=== PATIENT | female | born 1970 | race Caucasian/White ===

== ENCOUNTER 2020-10-28 22:15 | Emergency (ER) | payer OTHER ==
[~2020-10-28 22:15] MED LIST: ALIVE WOMEN'S1 EAC1 PO; ALL DAY ALLERGY10 M3 PO; BAYER CHEWABLE81 MG PO; BELVIQ XR20 MG PO; DIAZEPAM 5MG TAB5 MG PO; LIPITOR40 MG PO; PAXIL10 MG PO; PROAIR HFA8.5 GM INH; PROGESTERONE200 MG PO; SINGULAIR10 MG PO; TOLTERODINE TART4 MG PO; TOPROL XL 25MG25 MG PO; ZESTRIL2.5 MG PO
[2020-10-28 23:15] LABS: BASOPHIL 0.3 % (0-2); EOSINOPHIL 0.1 % (0-5); HCT 45.2 % (37.0-47.0); HGB 14.6 g/dl (12.5-16.0); LYMPHOCYTE 19.1 % (15-48); MCH 31.1 pg (25.0-31.0); MCHC 32.3 g/dL (32.0-36.0); MCV 96.4 fL (78.0-100.0); MONOCYTE 4.8 % (0-12); NRBC 0; PLT 276 K/uL (150-400); RBC 4.69 M/uL (4.20-5.40); RDW 12.7 % (11.5-14.0); WBC 13.6 K/uL (4.0-10.5)
[2020-10-28 23:44] LABS: PRO-BNP 33 pg/mL (<125)
[2020-10-28 23:45] LABS: ALBUMIN 3.4 g/dL (3.4-5.0); BILIRUBIN - TOTAL 0.4 mg/dL (0.2-1.0); BUN/CREAT RATIO (CALC) 12.9 RATIO; C-REACTIVE PROTEIN 3.8 mg/dL (<=0.90); CREATININE 0.93 mg/dL (0.51-0.95); GLOBULIN (CALCULATION) 3.9 g/dL; POTASSIUM 3.7 mmol/L (3.5-5.1); TOTAL PROTEIN 7.3 g/dL (6.4-8.2)
[2020-10-29 01:21] LABS: INR 0.98 (0.9-1.2); PROTHROMBIN TIME 12.3 SECONDS (11.4-13.6); PTT 25.1 SECONDS (22.2-34.7)
== END 2020-10-29 03:25 | disposition other institution (70) ==
LOC: FER 22:15
PROVIDERS: Emergency Medicine Emergency Medical Services
DX: I82.412 Acute embolism and thrombosis of left femoral vein (principal); I82.432 Acute embolism and thrombosis of left popliteal vein; I82.4Z2 Acute embolism and thrombosis of unspecified deep veins of left distal lower extremity; R10.84 Generalized abdominal pain; E04.1 Nontoxic single thyroid nodule; J44.9 Chronic obstructive pulmonary disease, unspecified; I10 Essential (primary) hypertension; E78.5 Hyperlipidemia, unspecified; Z88.5 Allergy status to narcotic agent; Z79.82 Long term (current) use of aspirin; Z79.899 Other long term (current) drug therapy
CPT/HCPCS: 36415; 36600; 71275; 80053; 82728; 82803; 83615; 83880; 84484; 85025; 85379; 85610; 85730; 86140; 93005; 93971; 94640; 94664; J1644; J2060; J2930; J7030; Q9967

== ENCOUNTER 2020-12-18 23:30 | Emergency (ER) | payer OTHER ==
[2020-12-19 01:42] LABS: BASOPHIL 0.5 % (0-2); EOSINOPHIL 0.6 % (0-5); HCT 38.6 % (37.0-47.0); HGB 12.7 g/dl (12.5-16.0); LYMPHOCYTE 23.7 % (15-48); MCH 31.4 pg (25.0-31.0); MCHC 32.9 g/dL (32.0-36.0); MCV 95.3 fL (78.0-100.0); MONOCYTE 6.6 % (0-12); MPV 9.1 fL (6.0-9.5); NEUTROPHIL 67.7 % (41-80); NRBC 0; PLT 339 K/uL (150-400); RBC 4.05 M/uL (4.20-5.40); RDW 14.2 % (11.5-14.0); WBC 8.2 K/uL (4.0-10.5)
[2020-12-19 02:01] LABS: ALBUMIN 2.9 g/dL (3.4-5.0); BILIRUBIN - TOTAL 0.4 mg/dL (0.2-1.0); BUN/CREAT RATIO (CALC) 5.6 RATIO; CREATININE 0.9 mg/dL (0.51-0.95); GLOBULIN (CALCULATION) 4.5 g/dL; POTASSIUM 3.8 mmol/L (3.5-5.1); TOTAL PROTEIN 7.4 g/dL (6.4-8.2)
[2020-12-19 02:09] LABS: LACTIC ACID 1.5 mmol/L (0.4-1.9)
== END 2020-12-19 07:45 | disposition other institution (70) ==
LOC: FER 23:30
PROVIDERS: Emergency Medicine Emergency Medical Services
DX: R13.10 Dysphagia, unspecified (principal); R22.1 Localized swelling, mass and lump, neck; I10 Essential (primary) hypertension; K21.9 Gastro-esophageal reflux disease without esophagitis; J45.909 Unspecified asthma, uncomplicated; Z86.718 Personal history of other venous thrombosis and embolism; Z88.5 Allergy status to narcotic agent; Z88.8 Allergy status to other drugs, medicaments and biological substances
CPT/HCPCS: 36415; 70491; 80053; 83605; 84145; 85025; 87040; J1100; J1170; J2405; J7030; Q9967

== ENCOUNTER 2021-04-10 19:55 | Emergency (ER) | payer OTHER ==
[2021-04-10 21:45] LABS: BASOPHIL 0.4 % (0-2); EOSINOPHIL 0.6 % (0-5); HCT 42.8 % (37.0-47.0); HGB 13.4 g/dl (12.5-16.0); LYMPHOCYTE 22.3 % (15-48); MCH 30.2 pg (25.0-31.0); MCHC 31.3 g/dL (32.0-36.0); MCV 96.4 fL (78.0-100.0); MONOCYTE 5.9 % (0-12); MPV 8.8 fL (6.0-9.5); NRBC 0; PLT 312 K/uL (150-400); RBC 4.44 M/uL (4.20-5.40); RDW 14.8 % (11.5-14.0); WBC 7.8 K/uL (4.0-10.5)
[2021-04-10 21:52] LABS: PTT 24.7 SECONDS (24.4-34.7)
[2021-04-10 21:53] LABS: INR 1.11 (0.9-1.2); PROTHROMBIN TIME 13.7 SECONDS (11.8-13.4)
[2021-04-10 22:01] LABS: ALBUMIN 3.1 g/dL (3.4-5.0); BILIRUBIN - TOTAL 0.4 mg/dL (0.2-1.0); BUN/CREAT RATIO (CALC) 13.7 RATIO; CREATININE 0.95 mg/dL (0.51-0.95); GLOBULIN (CALCULATION) 4.6 g/dL; POTASSIUM 3.9 mmol/L (3.5-5.1); TOTAL PROTEIN 7.7 g/dL (6.4-8.2)
[2021-04-11] MEDS ORDERED: NORCO 5-325 TA1 EACH PO (00:19)
== END 2021-04-11 01:30 | disposition home or self-care (01) ==
LOC: FER 19:55
PROVIDERS: Emergency Medicine Emergency Medical Services
DX: R07.89 Other chest pain (principal); R51.9 Headache, unspecified; I49.3 Ventricular premature depolarization; I10 Essential (primary) hypertension; Z88.5 Allergy status to narcotic agent; Z86.718 Personal history of other venous thrombosis and embolism
CPT/HCPCS: 36415; 71045; 71275; 80053; 84484; 85025; 85379; 85610; 85730; 86140; 93005; 93971; J1100; J1170; J1885; J2405; J3360; J7030; Q9967

== ENCOUNTER 2021-05-01 16:14 | Inpatient (IN) | payer OTHER ==
[~2021-05-01] VITALS: Ht 170.2 cm; Wt 129.9 kg
[~2021-05-01 16:14] MED LIST changes: +NORCO 5-325 TA1 EACH PO
[2021-05-01 17:53] LABS: BASOPHIL 0.1 % (0-2); EOSINOPHIL 0 % (0-5); HCT 46.5 % (37.0-47.0); HGB 14.9 g/dl (12.5-16.0); LYMPHOCYTE 7.5 % (15-48); MCH 29.7 pg (25.0-31.0); MCV 92.8 fL (78.0-100.0); MONOCYTE 1.9 % (0-12); MPV 9.9 fL (6.0-9.5); NEUTROPHIL 89.8 % (41-80); NRBC 0; PLT 302 K/uL (150-400); RBC 5.01 M/uL (4.20-5.40); RDW 14.8 % (11.5-14.0); WBC 13.4 K/uL (4.0-10.5)
[2021-05-01 18:31] LABS: INR 1.12 (0.9-1.2); PROTHROMBIN TIME 13.8 SECONDS (11.8-13.4); PTT 27.5 SECONDS (24.4-34.7)
[2021-05-01 18:32] LABS: D-DIMER 0.27 ug/mLFEU (0.00-0.41)
[2021-05-01 18:34] LABS: PRO-BNP 138 pg/mL (<125)
[2021-05-01 18:38] LABS: ALBUMIN 2.7 g/dL (3.4-5.0); BILIRUBIN - TOTAL 0.5 mg/dL (0.2-1.0); BUN/CREAT RATIO (CALC) 13.2 RATIO; C-REACTIVE PROTEIN 7.4 mg/dL (<=0.90); CREATININE 0.91 mg/dL (0.51-0.95); GLOBULIN (CALCULATION) 3.9 g/dL; POTASSIUM 3.7 mmol/L (3.5-5.1); TOTAL PROTEIN 6.6 g/dL (6.4-8.2)
[2021-05-02 06:31] LABS: BASOPHIL 0.2 % (0-2); EOSINOPHIL 0 % (0-5); HCT 39.9 % (37.0-47.0); HGB 12.9 g/dl (12.5-16.0); LYMPHOCYTE 9.5 % (15-48); MCH 29.8 pg (25.0-31.0); MCHC 32.3 g/dL (32.0-36.0); MCV 92.1 fL (78.0-100.0); MONOCYTE 2.3 % (0-12); MPV 9.1 fL (6.0-9.5); NEUTROPHIL 87.2 % (41-80); NRBC 0; PLT 240 K/uL (150-400); RBC 4.33 M/uL (4.20-5.40); RDW 14.6 % (11.5-14.0); WBC 6.6 K/uL (4.0-10.5)
[2021-05-02 06:58] LABS: ALBUMIN 2.4 g/dL (3.4-5.0); BILIRUBIN - TOTAL 0.4 mg/dL (0.2-1.0); BUN/CREAT RATIO (CALC) 18.8 RATIO; C-REACTIVE PROTEIN 10.7 mg/dL (<=0.90); CREATININE 0.69 mg/dL (0.51-0.95); GLOBULIN (CALCULATION) 3.7 g/dL; MAGNESIUM 2.2 mg/dL (1.8-2.4); POTASSIUM 4.3 mmol/L (3.5-5.1); TOTAL PROTEIN 6.1 g/dL (6.4-8.2)
[2021-05-03 05:50] LABS: BASOPHIL 0.3 % (0-2); EOSINOPHIL 0 % (0-5); HCT 44.1 % (37.0-47.0); HGB 13.9 g/dl (12.5-16.0); LYMPHOCYTE 12.2 % (15-48); MCH 29.8 pg (25.0-31.0); MCHC 31.5 g/dL (32.0-36.0); MCV 94.4 fL (78.0-100.0); MONOCYTE 5.7 % (0-12); MPV 9.2 fL (6.0-9.5); NRBC 0; PLT 300 K/uL (150-400); RBC 4.67 M/uL (4.20-5.40); RDW 14.7 % (11.5-14.0); WBC 7.6 K/uL (4.0-10.5)
[2021-05-03 06:11] LABS: BUN/CREAT RATIO (CALC) 23.3 RATIO; CREATININE 0.73 mg/dL (0.51-0.95); POTASSIUM 4.2 mmol/L (3.5-5.1)
--- NOTE | 2021-05-03 14:27 | NUR ---
05/03 Please monitor for 02 needs at discharge
--- NOTE | 2021-05-03 18:17 | NUR ---
BLADDER SCANNED PT R/T NO UOP ON THIS SHIFT. REGISTERED TRAVEL NURSE REPORTED VERY LITTLE OUTPUT WELL. SCAN REVEALED 400ML IN BLADDER. NO INTERVENTION NEEDED. PT DOES NOT HAVE MAINTENANCE FLUIDS AND HAS POOR PO INTAKE R/T O2 DEMAND.
[2021-05-05 04:11] LABS: BASOPHIL 0.4 % (0-2); EOSINOPHIL 0 % (0-5); HGB 12.3 g/dl (12.5-16.0); LYMPHOCYTE 5.7 % (15-48); MCH 29.9 pg (25.0-31.0); MCHC 31.5 g/dL (32.0-36.0); MCV 94.7 fL (78.0-100.0); MONOCYTE 4.3 % (0-12); MPV 8.7 fL (6.0-9.5); NEUTROPHIL 86.2 % (41-80); NRBC 0; PLT 287 K/uL (150-400); RBC 4.12 M/uL (4.20-5.40); RDW 14.6 % (11.5-14.0); WBC 11.3 K/uL (4.0-10.5)
[2021-05-05 04:33] LABS: PHOSPHORUS 3.1 mg/dL (2.6-4.7)
[2021-05-06 07:04] LABS: BASOPHIL 0.3 % (0-2); EOSINOPHIL 0.1 % (0-5); HCT 42.2 % (37.0-47.0); HGB 13.6 g/dl (12.5-16.0); LYMPHOCYTE 3.3 % (15-48); MCH 29.9 pg (25.0-31.0); MCHC 32.2 g/dL (32.0-36.0); MCV 92.7 fL (78.0-100.0); MONOCYTE 2.6 % (0-12); MPV 8.8 fL (6.0-9.5); NRBC 0; PLT 320 K/uL (150-400); RBC 4.55 M/uL (4.20-5.40); RDW 14.5 % (11.5-14.0); WBC 16.3 K/uL (4.0-10.5)
[2021-05-06 07:05] LABS: NEUTROPHIL 91.1 % (41-80)
[2021-05-06 07:17] LABS: BUN/CREAT RATIO (CALC) 17.6 RATIO; CREATININE 0.68 mg/dL (0.51-0.95)
[2021-05-07 05:49] LABS: BASOPHIL 0.2 % (0-2); EOSINOPHIL 0 % (0-5); HCT 37.2 % (37.0-47.0); MCH 29.6 pg (25.0-31.0); MCHC 32.3 g/dL (32.0-36.0); MCV 91.9 fL (78.0-100.0); MONOCYTE 2.7 % (0-12); MPV 8.8 fL (6.0-9.5); NEUTROPHIL 90.6 % (41-80); NRBC 0; PLT 336 K/uL (150-400); RBC 4.05 M/uL (4.20-5.40); RDW 14.5 % (11.5-14.0); WBC 16.5 K/uL (4.0-10.5)
[2021-05-07 06:14] LABS: BUN/CREAT RATIO (CALC) 15.6 RATIO; CREATININE 0.64 mg/dL (0.51-0.95); POTASSIUM 3.7 mmol/L (3.5-5.1)
[2021-05-08 06:02] LABS: BASOPHIL 0.3 % (0-2); EOSINOPHIL 0 % (0-5); HGB 12.3 g/dl (12.5-16.0); MCH 29.6 pg (25.0-31.0); MCHC 32.4 g/dL (32.0-36.0); MCV 91.6 fL (78.0-100.0); MONOCYTE 2.5 % (0-12); MPV 9.2 fL (6.0-9.5); NEUTROPHIL 89.2 % (41-80); NRBC 0; PLT 374 K/uL (150-400); RBC 4.15 M/uL (4.20-5.40); RDW 14.6 % (11.5-14.0)
[2021-05-08 06:03] LABS: WBC 14.9 K/uL (4.0-10.5)
[2021-05-08 06:29] LABS: BUN/CREAT RATIO (CALC) 20.3 RATIO; CREATININE 0.64 mg/dL (0.51-0.95); POTASSIUM 3.8 mmol/L (3.5-5.1)
[2021-05-09 10:40] LABS: BILIRUBIN NEGATIVE (NEGATIVE); BLOOD NEGATIVE Ery/uL (NEGATIVE); CLARITY CLEAR (CLEAR); COLOR YELLOW (YELLOW); GLUCOSE (U) NORMAL (NORMAL); LEUKOCYTES NEGATIVE Leu/uL (NEGATIVE); NITRITE NEGATIVE (NEGATIVE); PROTEIN NEGATIVE (NEGATIVE); SPECIFIC GRAVITY 1.025 (1.001-1.030); pH 6.5 (5.0-9.0)
[2021-05-11 08:33] LABS: BASOPHIL 0.2 % (0-2); EOSINOPHIL 0.1 % (0-5); HCT 40.5 % (37.0-47.0); HGB 12.9 g/dl (12.5-16.0); LYMPHOCYTE 2.5 % (15-48); MCH 29.3 pg (25.0-31.0); MCHC 31.9 g/dL (32.0-36.0); MONOCYTE 2.5 % (0-12); MPV 9.3 fL (6.0-9.5); NRBC 0; PLT 283 K/uL (150-400); RDW 14.2 % (11.5-14.0)
[2021-05-11 08:36] LABS: NEUTROPHIL 92.2 % (41-80)
[2021-05-11 09:06] LABS: ALBUMIN 1.9 g/dL (3.4-5.0); BILIRUBIN - TOTAL 0.5 mg/dL (0.2-1.0); BUN/CREAT RATIO (CALC) 17.2 RATIO; CREATININE 0.64 mg/dL (0.51-0.95); GLOBULIN (CALCULATION) 4.6 g/dL; MAGNESIUM 2.1 mg/dL (1.8-2.4); POTASSIUM 4.4 mmol/L (3.5-5.1); TOTAL PROTEIN 6.5 g/dL (6.4-8.2)
[2021-05-12 04:20] LABS: BASOPHIL 0.2 % (0-2); EOSINOPHIL 0 % (0-5); HCT 38.7 % (37.0-47.0); HGB 12.6 g/dl (12.5-16.0); LYMPHOCYTE 1.9 % (15-48); MCH 29.6 pg (25.0-31.0); MCHC 32.6 g/dL (32.0-36.0); MCV 91.1 fL (78.0-100.0); MONOCYTE 2.3 % (0-12); MPV 9.4 fL (6.0-9.5); NRBC 0; PLT 260 K/uL (150-400); RBC 4.25 M/uL (4.20-5.40); RDW 14.3 % (11.5-14.0); WBC 18.7 K/uL (4.0-10.5)
[2021-05-12 04:26] LABS: NEUTROPHIL 93.3 % (41-80)
[2021-05-12 04:48] LABS: BUN/CREAT RATIO (CALC) 21.7 RATIO; CREATININE 0.6 mg/dL (0.51-0.95); POTASSIUM 4.6 mmol/L (3.5-5.1)
[2021-05-13 06:01] LABS: BASOPHIL 0.2 % (0-2); EOSINOPHIL 0.1 % (0-5); HCT 41.3 % (37.0-47.0); HGB 13.4 g/dl (12.5-16.0); LYMPHOCYTE 2.3 % (15-48); MCH 29.6 pg (25.0-31.0); MCHC 32.4 g/dL (32.0-36.0); MCV 91.2 fL (78.0-100.0); MONOCYTE 2.2 % (0-12); MPV 9.9 fL (6.0-9.5); NEUTROPHIL 92.2 % (41-80); NRBC 0; PLT 240 K/uL (150-400); RBC 4.53 M/uL (4.20-5.40); RDW 14.4 % (11.5-14.0); WBC 17.8 K/uL (4.0-10.5)
[2021-05-13 06:33] LABS: CREATININE 0.65 mg/dL (0.51-0.95); PHOSPHORUS 3.9 mg/dL (2.6-4.7); POTASSIUM 4.7 mmol/L (3.5-5.1)
[2021-05-14 03:46] LABS: BASOPHIL 0.2 % (0-2); EOSINOPHIL 0.1 % (0-5); HCT 39.5 % (37.0-47.0); HGB 12.5 g/dl (12.5-16.0); LYMPHOCYTE 2.5 % (15-48); MCH 28.9 pg (25.0-31.0); MCHC 31.6 g/dL (32.0-36.0); MCV 91.4 fL (78.0-100.0); MONOCYTE 2.9 % (0-12); MPV 9.7 fL (6.0-9.5); NRBC 0; PLT 203 K/uL (150-400); RBC 4.32 M/uL (4.20-5.40); RDW 14.2 % (11.5-14.0); WBC 17.4 K/uL (4.0-10.5)
[2021-05-14 03:49] LABS: NEUTROPHIL 91.7 % (41-80)
[2021-05-14 04:27] LABS: BUN/CREAT RATIO (CALC) 18.3 RATIO; CREATININE 0.71 mg/dL (0.51-0.95); PHOSPHORUS 3.8 mg/dL (2.6-4.7); POTASSIUM 4.7 mmol/L (3.5-5.1)
[2021-05-14 12:20] LABS: INR 1.44 (0.9-1.2); PROTHROMBIN TIME 16.8 SECONDS (11.8-13.4); PTT 22.1 SECONDS (24.4-34.7)
[2021-05-14 12:37] LABS: BILIRUBIN - TOTAL 0.5 mg/dL (0.2-1.0); BUN/CREAT RATIO (CALC) 20.6 RATIO; CREATININE 0.63 mg/dL (0.51-0.95); GLOBULIN (CALCULATION) 4.4 g/dL; POTASSIUM 4.2 mmol/L (3.5-5.1); TOTAL PROTEIN 6.4 g/dL (6.4-8.2)
[2021-05-15 04:47] LABS: BASOPHIL 0.3 % (0-2); EOSINOPHIL 0.1 % (0-5); HCT 39.4 % (37.0-47.0); HGB 12.9 g/dl (12.5-16.0); LYMPHOCYTE 2.9 % (15-48); MCH 29.6 pg (25.0-31.0); MCHC 32.7 g/dL (32.0-36.0); MCV 90.4 fL (78.0-100.0); MONOCYTE 2.4 % (0-12); NEUTROPHIL 89.6 % (41-80); NRBC 0; PLT 200 K/uL (150-400); RBC 4.36 M/uL (4.20-5.40); RDW 14.1 % (11.5-14.0)
[2021-05-15 04:52] LABS: WBC 17.8 K/uL (4.0-10.5)
[2021-05-15 05:15] LABS: BUN/CREAT RATIO (CALC) 23.8 RATIO; C-REACTIVE PROTEIN 4.1 mg/dL (<=0.90); CREATININE 0.63 mg/dL (0.51-0.95); MAGNESIUM 2.1 mg/dL (1.8-2.4); PHOSPHORUS 3.7 mg/dL (2.6-4.7); POTASSIUM 4.4 mmol/L (3.5-5.1)
[2021-05-16 04:45] LABS: BASOPHIL 0.4 % (0-2); EOSINOPHIL 0 % (0-5); HCT 41.5 % (37.0-47.0); HGB 13.6 g/dl (12.5-16.0); MCH 29.4 pg (25.0-31.0); MCHC 32.8 g/dL (32.0-36.0); MCV 89.8 fL (78.0-100.0); MONOCYTE 3.3 % (0-12); MPV 10.3 fL (6.0-9.5); NEUTROPHIL 88.4 % (41-80); NRBC 0; PLT 195 K/uL (150-400); RBC 4.62 M/uL (4.20-5.40); RDW 14.1 % (11.5-14.0); WBC 23.5 K/uL (4.0-10.5)
[2021-05-16 04:59] LABS: BUN/CREAT RATIO (CALC) 33.9 RATIO; C-REACTIVE PROTEIN 2.7 mg/dL (<=0.90); CREATININE 0.59 mg/dL (0.51-0.95); MAGNESIUM 2.1 mg/dL (1.8-2.4); PHOSPHORUS 2.8 mg/dL (2.6-4.7); POTASSIUM 4.5 mmol/L (3.5-5.1)
--- NOTE | 2021-05-16 22:27 | NUR ---
SPOKE WITH PATIENT ALONG WITH RAE. DISH WASHER EXPLAINED TO PATIENT THAT IT IS IN HER BEST INTEREST TO BE INTUBATED AND SHE IS MAXED OUT ON HER BIPAP. PT REASSURED THAT ONCE SHE IS INTUBATED THE MACHINE WILL ASSIST IN HER BREATHING AND WE WILL KEEP HER RELAXED AND SEDATED. PT VERBALIZES THAT SHE WANTS TO BE INTUBATED SO THAT SHE CAN BE AT [facility].
--- NOTE | 2021-05-17 01:58 | NUR ---
PT WAS INTUBATED AT 2253 ET 22@ LIP 139/88 ETOM 10MG GIVEN AT 2252 SUCCS 100MG GIVEN AT 2251 2256 PROP 5 MCG STARTED AT 2256 2304 2MG OF VERSED GIVEN TOF 4/5 LEVO STARTED AT 2346 FENT GTT STARTED AT 0026 VEC GTT STARTED AT 0043 OG PLACED AT 0030 VENT SETTINGS RATE: 18 TV: 550 FIO2: 100 PEEP:15
--- NOTE | 2021-05-17 02:22 | NUR ---
CALLED TECHNICAL SPECIALIST TO INFORM HER THAT I HAVE TITRATED PATIENTS DRIPS SEVERAL TIMES AND PT IS IS STILL IN THE 30'S. WILL TURN THE VEC OFF ANC CTM.
[2021-05-17 05:08] LABS: BASOPHIL 0.1 % (0-2); EOSINOPHIL 0 % (0-5); HCT 48.2 % (37.0-47.0); HGB 15.3 g/dl (12.5-16.0); LYMPHOCYTE 1.3 % (15-48); MCH 29.8 pg (25.0-31.0); MCHC 31.7 g/dL (32.0-36.0); MONOCYTE 3.7 % (0-12); MPV 10.3 fL (6.0-9.5); NRBC 0; PLT 211 K/uL (150-400); RBC 5.13 M/uL (4.20-5.40); RDW 14.2 % (11.5-14.0)
[2021-05-17 05:19] LABS: INR 1.59 (0.9-1.2); PROTHROMBIN TIME 18.2 SECONDS (11.8-13.4); PTT 25.7 SECONDS (24.4-34.7)
[2021-05-17 05:20] LABS: WBC 42.7 K/uL (4.0-10.5)
[2021-05-17 05:22] LABS: ALBUMIN 2.4 g/dL (3.4-5.0); BILIRUBIN - TOTAL 0.6 mg/dL (0.2-1.0); BUN/CREAT RATIO (CALC) 24.5 RATIO; CREATININE 0.94 mg/dL (0.51-0.95); GLOBULIN (CALCULATION) 4.7 g/dL; MAGNESIUM 2.2 mg/dL (1.8-2.4); PHOSPHORUS 6.8 mg/dL (2.6-4.7); POTASSIUM 5.6 mmol/L (3.5-5.1); TOTAL PROTEIN 7.1 g/dL (6.4-8.2)
--- NOTE | 2021-05-17 06:59 | NUR ---
VERSED INCREASED TO 4 ML @ 0625 FENT INCREASED TO 12.5ML @ 0625 NISH INCREASED 750 ML @0625
[2021-05-17 10:15] LABS: HCT 39.3 % (37.0-47.0); HGB 12.4 g/dl (12.5-16.0); MCHC 31.6 g/dL (32.0-36.0); MCV 95.2 fL (78.0-100.0); NRBC 0; PLT 153 K/uL (150-400); RBC 4.13 M/uL (4.20-5.40); RDW 14.1 % (11.5-14.0)
[2021-05-17 10:23] LABS: WBC 39.5 K/uL (4.0-10.5)
[2021-05-17 10:35] LABS: ALBUMIN 1.9 g/dL (3.4-5.0); BILIRUBIN - TOTAL 0.5 mg/dL (0.2-1.0); BUN/CREAT RATIO (CALC) 26.5 RATIO; CREATININE 0.98 mg/dL (0.51-0.95); PHOSPHORUS 3.8 mg/dL (2.6-4.7); POTASSIUM 4.5 mmol/L (3.5-5.1)
[2021-05-17 10:37] LABS: GLOBULIN (CALCULATION) 3.2 g/dL; MAGNESIUM 1.6 mg/dL (1.8-2.4); TOTAL PROTEIN 5.1 g/dL (6.4-8.2)
--- NOTE | 2021-05-17 13:06 | NUR ---
STARTED TUBE FEEDS TWOCAL HN @ 25 WITH GOAL OF 60ML/HR @1200 IN OG
[2021-05-17 16:58] LABS: BUN/CREAT RATIO (CALC) 25.3 RATIO; CREATININE 0.83 mg/dL (0.51-0.95); POTASSIUM 4.5 mmol/L (3.5-5.1)
[2021-05-17 17:09] LABS: MAGNESIUM 2.5 mg/dL (1.8-2.4)
[2021-05-18 04:57] LABS: BASOPHIL 0.5 % (0-2); EOSINOPHIL 0 % (0-5); HCT 32.8 % (37.0-47.0); HGB 10.6 g/dl (12.5-16.0); LYMPHOCYTE 2.7 % (15-48); MCH 30.2 pg (25.0-31.0); MCHC 32.3 g/dL (32.0-36.0); MCV 93.4 fL (78.0-100.0); MONOCYTE 3.5 % (0-12); MPV 10.5 fL (6.0-9.5); NEUTROPHIL 86.3 % (41-80); NRBC 0; PLT 111 K/uL (150-400); RBC 3.51 M/uL (4.20-5.40); RDW 14.4 % (11.5-14.0)
[2021-05-18 05:00] LABS: WBC 26.5 K/uL (4.0-10.5)
[2021-05-18 05:42] LABS: ALBUMIN 1.6 g/dL (3.4-5.0); BILIRUBIN - TOTAL 0.3 mg/dL (0.2-1.0); BUN/CREAT RATIO (CALC) 27.5 RATIO; CREATININE 0.8 mg/dL (0.51-0.95); GLOBULIN (CALCULATION) 3.5 g/dL; MAGNESIUM 2.4 mg/dL (1.8-2.4); PHOSPHORUS 2.7 mg/dL (2.6-4.7); POTASSIUM 4.5 mmol/L (3.5-5.1); TOTAL PROTEIN 5.1 g/dL (6.4-8.2)
--- NOTE | 2021-05-18 08:19 | NUR ---
PATIENT TRANSPORTED VIA [facility] TO [facility] IN [place]. ON LEVOPHED, PROPOFOL AND FENTANYL UPON DISCHARGE. REPORT CALLED ON METAL SPRAYING MACHINE OPERATOR TO [facility].
--- NOTE | 2021-05-18 14:47 | NUR ---
LATE ENTRY ORRIGNINALLY DOCUMENTED ON WRONG PATIENT 05/17/2021 1937: PATIENT ON EPINEPHRINE AT 10 MCGS AT BEGINNING OF SHIFT, TITRATED DOWN AT 2 MCGS INCREMENTS STARTING AT NOON UNTIL REMOVED AT 1500 PATIENT ON NEOSYNEPHRINE AT 300 MCGS AT BEGINNING OF SHIFT, TITRATED DOWN AT 50 MCGS STARTING AT 1100 UNTIL REMOVED AT 1600. LEVOPHED TITRATED DOWN TO 25 MCGS VERSED AT 8 MCGS FENTANYL AT 150 MCGS VECURONIUM 0.4 MCGS
[2021-05-19 05:23] LABS: BASOPHIL 0.5 % (0-2); EOSINOPHIL 0 % (0-5); HCT 32.3 % (37.0-47.0); HGB 10.4 g/dl (12.5-16.0); MCH 30.7 pg (25.0-31.0); MCHC 32.2 g/dL (32.0-36.0); MCV 95.3 fL (78.0-100.0); MONOCYTE 3.5 % (0-12); MPV 10.8 fL (6.0-9.5); NEUTROPHIL 87.5 % (41-80); NRBC 0.2; PLT 120 K/uL (150-400); RBC 3.39 M/uL (4.20-5.40); RDW 14.7 % (11.5-14.0); WBC 26.3 K/uL (4.0-10.5)
[2021-05-19 05:48] LABS: ALBUMIN 1.7 g/dL (3.4-5.0); BILIRUBIN - TOTAL 0.3 mg/dL (0.2-1.0); BUN/CREAT RATIO (CALC) 28.7 RATIO; CREATININE 0.87 mg/dL (0.51-0.95); GLOBULIN (CALCULATION) 3.5 g/dL; MAGNESIUM 2.5 mg/dL (1.8-2.4); POTASSIUM 5.3 mmol/L (3.5-5.1); TOTAL PROTEIN 5.2 g/dL (6.4-8.2)
--- NOTE | 2021-05-19 11:52 | NUR ---
[address] [facility] AT PT BEDSIDE PER PT FAMILY REQUEST FOR ANNOINTING OF THE SICK.
--- NOTE | 2021-05-19 19:44 | NUR ---
1700-PT TURNED FROM PRONE POSITION TO SUPINE WITH MYSELF, CRYSTAL RN, CRISTIANA RN, SINGH WOODARDA, KWAME WOODARDA AND GOMEZ RT AT HEAD OF BED. DR. HAMMOND NEARBY. PT 92%. NT SUCTIONED DONE DUE TO BLEEDING FROM RIGHT NARE. PEAK PRESSURE 70- 75. WITHOUT IMPROVEMENT. GOMEZ RT SWITHED PT TO PC. NOTIFIED OF CHANGE. PT O2 SAT 96%
--- NOTE | 2021-05-20 00:29 | NUR ---
CAR LOADER COSRIC ORDERED NOT TO PRONE AT THIS TIME. O2 SAT99% CHEST XRAY SHOWED IMPROVEMENT IN PNEUMOTHORAX. WILL CONTINUE TO MONITIOR O2 SATS FOR NEED.
[2021-05-20 04:09] LABS: BASOPHIL 0.4 % (0-2); EOSINOPHIL 0 % (0-5); HCT 28.1 % (37.0-47.0); LYMPHOCYTE 2.7 % (15-48); MCH 30.2 pg (25.0-31.0); MCV 94.3 fL (78.0-100.0); NRBC 0.4; PLT 121 K/uL (150-400); RBC 2.98 M/uL (4.20-5.40); RDW 14.9 % (11.5-14.0); WBC 24.5 K/uL (4.0-10.5)
[2021-05-20 04:22] LABS: NEUTROPHIL 86.4 % (41-80)
[2021-05-20 04:53] LABS: ALBUMIN 1.7 g/dL (3.4-5.0); BILIRUBIN - TOTAL 0.3 mg/dL (0.2-1.0); BUN/CREAT RATIO (CALC) 42.7 RATIO; CREATININE 0.82 mg/dL (0.51-0.95); GLOBULIN (CALCULATION) 3.2 g/dL; MAGNESIUM 2.6 mg/dL (1.8-2.4); PHOSPHORUS 2.3 mg/dL (2.6-4.7); POTASSIUM 5.2 mmol/L (3.5-5.1); TOTAL PROTEIN 4.9 g/dL (6.4-8.2)
[2021-05-21 03:39] LABS: BASOPHIL 0.3 % (0-2); EOSINOPHIL 0.1 % (0-5); HCT 23.5 % (37.0-47.0); HGB 7.8 g/dl (12.5-16.0); LYMPHOCYTE 3.3 % (15-48); MCH 30.7 pg (25.0-31.0); MCHC 33.2 g/dL (32.0-36.0); MCV 92.5 fL (78.0-100.0); MPV 11.3 fL (6.0-9.5); NEUTROPHIL 82.6 % (41-80); NRBC 1.6; PLT 114 K/uL (150-400); RBC 2.54 M/uL (4.20-5.40); RDW 14.9 % (11.5-14.0)
[2021-05-21 03:44] LABS: WBC 24.8 K/uL (4.0-10.5)
[2021-05-21 05:09] LABS: ALBUMIN 1.6 g/dL (3.4-5.0); BILIRUBIN - TOTAL 0.5 mg/dL (0.2-1.0); BUN/CREAT RATIO (CALC) 44.3 RATIO; CREATININE 0.79 mg/dL (0.51-0.95); GLOBULIN (CALCULATION) 2.9 g/dL; MAGNESIUM 2.4 mg/dL (1.8-2.4); PHOSPHORUS 1.7 mg/dL (2.6-4.7); TOTAL PROTEIN 4.5 g/dL (6.4-8.2)
[2021-05-21 05:15] LABS: POTASSIUM 5.4 mmol/L (3.5-5.1)
[2021-05-21 14:29] LABS: HCT 22.5 % (37.0-47.0); HGB 7.4 g/dL (12.5-16.0)
[2021-05-22 05:04] LABS: BASOPHIL 0.2 % (0-2); EOSINOPHIL 0 % (0-5); HCT 22.9 % (37.0-47.0); LYMPHOCYTE 4.4 % (15-48); MCH 30.5 pg (25.0-31.0); MCHC 32.8 g/dL (32.0-36.0); MCV 93.1 fL (78.0-100.0); MONOCYTE 4.1 % (0-12); MPV 11.1 fL (6.0-9.5); NEUTROPHIL 81.6 % (41-80); NRBC 2.5; PLT 119 K/uL (150-400); RBC 2.46 M/uL (4.20-5.40); RDW 15.2 % (11.5-14.0)
[2021-05-22 05:10] LABS: HGB 7.5 g/dl (12.5-16.0); WBC 20.1 K/uL (4.0-10.5)
[2021-05-22 05:41] LABS: BUN/CREAT RATIO (CALC) 47.7 RATIO; CREATININE 0.65 mg/dL (0.51-0.95); MAGNESIUM 2.1 mg/dL (1.8-2.4); PHOSPHORUS 2.8 mg/dL (2.6-4.7); POTASSIUM 5.2 mmol/L (3.5-5.1)
[2021-05-23 04:05] LABS: BASOPHIL 0.3 % (0-2); EOSINOPHIL 0 % (0-5); HCT 23.8 % (37.0-47.0); HGB 7.7 g/dl (12.5-16.0); MCH 30.3 pg (25.0-31.0); MCHC 32.4 g/dL (32.0-36.0); MCV 93.7 fL (78.0-100.0); MONOCYTE 3.1 % (0-12); MPV 11.6 fL (6.0-9.5); NEUTROPHIL 83.9 % (41-80); NRBC 4.6; PLT 144 K/uL (150-400); RBC 2.54 M/uL (4.20-5.40); RDW 15.6 % (11.5-14.0)
[2021-05-23 04:08] LABS: WBC 21.5 K/uL (4.0-10.5)
[2021-05-23 04:25] LABS: BUN/CREAT RATIO (CALC) 54.9 RATIO; CREATININE 0.71 mg/dL (0.51-0.95)
[2021-05-24 04:35] LABS: BASOPHIL 0.4 % (0-2); EOSINOPHIL 0 % (0-5); HCT 27.2 % (37.0-47.0); HGB 8.7 g/dl (12.5-16.0); LYMPHOCYTE 3.9 % (15-48); MCH 30.4 pg (25.0-31.0); MCV 95.1 fL (78.0-100.0); MPV 11.4 fL (6.0-9.5); NEUTROPHIL 83.9 % (41-80); NRBC 3.5; PLT 164 K/uL (150-400); RBC 2.86 M/uL (4.20-5.40); RDW 16.6 % (11.5-14.0)
[2021-05-24 05:00] LABS: WBC 25.9 K/uL (4.0-10.5)
[2021-05-24 05:12] LABS: BUN/CREAT RATIO (CALC) 54.2 RATIO; CREATININE 0.72 mg/dL (0.51-0.95); PHOSPHORUS 3.1 mg/dL (2.6-4.7); POTASSIUM 4.8 mmol/L (3.5-5.1)
--- NOTE | 2021-05-24 20:00 | NUR ---
ETT ALVES CHANGED, OLD ETT REMOVED AND PATIENT HAD ABOUT 3-4 INCH SKIN TEAR ON LEFT CHEEK. RN AT BEDSIDE CLEANED WITH SALINE AND MEPIPLEX APPLIED TO WOUND AND THEN NEW ETT ALVES PLACED ON TOP OF THAT. RT CHEEK SKIN ASSESSMENT OK. ORAL AIRWAY PLACED ON RT SIDE. PATIENT WAS BITING DOWN ON TUBE WHEN SUCTIONED AND DID HAVE A GAG REFLEX. PATIENT APPEARS TO BE POSTURING SLIGHTLY. PATIENT DOES HAVE SLIGHT CUFF LEAK. FIO2 DECREAED TO 70% FROM 75
--- NOTE | 2021-05-24 20:03 | NUR ---
CHANGED ETT ALVES WITH ROSEY ESTEVEZ AND NOTICED A SKIN TEAR ON LEFT CHEEK UNDER ALVES. CLEANSED WITH NS AND GAUZE AND PLACED MEPILEX. PLACED NEW ETT ALVES OVER MEPILEX.
--- NOTE | 2021-05-25 00:20 | NUR ---
NOTIFIED RAE ESPITIA OF PATIENT'S NEURO STATUS CHANGE. PATIENT'S ARMS RAISE UP INTO A POSTERING POSITION REPETITIVELY WTIH EYES ROLLED BACK. HR INCREASES TO 130S WITH STUMULATION. DISCUSSED WEANING PATIENT OFF SEDATION TO ASSESS NEURO STATUS, AND ORDER FOR HEAD CT. 05/24/2021 2208
--- NOTE | 2021-05-25 00:27 | NUR ---
TRANSPORTED PATIENT TO CT WITH 2 RESPIRATORY, MACHINE STRIPPER, AND ENVIRONMENTAL PROTECTION INSPECTOR. TIME LEFT UNIT: 2240 TIME OF RETURN TO UNIT: 2300 05/24/2021 PATIENT UNCHANGED UPON RETURN.
[2021-05-25 04:09] LABS: BASOPHIL 0.4 % (0-2); EOSINOPHIL 0 % (0-5); HCT 27.1 % (37.0-47.0); HGB 8.6 g/dl (12.5-16.0); LYMPHOCYTE 4.2 % (15-48); MCH 30.7 pg (25.0-31.0); MCHC 31.7 g/dL (32.0-36.0); MCV 96.8 fL (78.0-100.0); MPV 11.6 fL (6.0-9.5); NRBC 4.2; PLT 180 K/uL (150-400); RDW 17.4 % (11.5-14.0); WBC 25.9 K/uL (4.0-10.5)
[2021-05-25 04:14] LABS: NEUTROPHIL 84.6 % (41-80)
[2021-05-25 04:37] LABS: BUN/CREAT RATIO (CALC) 60.3 RATIO; CREATININE 0.73 mg/dL (0.51-0.95); POTASSIUM 4.6 mmol/L (3.5-5.1)
[2021-05-25 10:24] LABS: BILIRUBIN NEGATIVE (NEGATIVE); BLOOD 3+ Ery/uL (NEGATIVE); CLARITY CLEAR (CLEAR); COLOR YELLOW (YELLOW); GLUCOSE (U) NORMAL (NORMAL); LEUKOCYTES NEGATIVE Leu/uL (NEGATIVE); NITRITE NEGATIVE (NEGATIVE); PROTEIN 1+ mg/dL (NEGATIVE); UROBILINOGEN 0.2 mg/dL (0.2-1.0); pH 6.5 (5.0-9.0)
[2021-05-25 10:35] LABS: BACTERIA 1+; YEAST PRESENT
[2021-05-26 04:50] LABS: BASOPHIL 0.1 % (0-2); EOSINOPHIL 0.1 % (0-5); HCT 23.9 % (37.0-47.0); HGB 7.5 g/dl (12.5-16.0); LYMPHOCYTE 4.4 % (15-48); MCH 31.1 pg (25.0-31.0); MCHC 31.4 g/dL (32.0-36.0); MCV 99.2 fL (78.0-100.0); MONOCYTE 2.5 % (0-12); MPV 11.7 fL (6.0-9.5); NRBC 2.8; PLT 157 K/uL (150-400); RBC 2.41 M/uL (4.20-5.40); WBC 20.2 K/uL (4.0-10.5)
[2021-05-26 05:08] LABS: NEUTROPHIL 87.6 % (41-80)
--- NOTE | 2021-05-26 05:33 | NUR ---
2112: TIME OUT PERFORMED TERESE TEMPLETON RN AND DR. ANDREA. LEFT FEMORAL CENTRAL LINE IS BEING PLACED. PT. HAS NO OTHER IV ACCESS DUE TO 2 PERIPHERALS BLOWING IN THE LAST HOUR. EMERGENT CONSENT OBTAINED. AT 2139 LEFT FEMORAL WAS PLACED. CLEANED, DRESSED AND FLUSHED BY . CONSENT AND PROGRESS NOTE SENT TO ER TO BE FILLED OUT BY . ANICETO THOMAS
[2021-05-26 05:35] LABS: BUN/CREAT RATIO (CALC) 64.3 RATIO; CREATININE 0.7 mg/dL (0.51-0.95); POTASSIUM 3.9 mmol/L (3.5-5.1)
--- NOTE | 2021-05-26 05:37 | NUR ---
PT. HAD RIGHT FEMORAL PULLED DURING DAYSHIFT DUE TO "SPIKING TEMPERATURE". PT HAD AN 18 IN THE LOTUS AND A 20 IN THE REVA. PT. IS ON SEDATON AND PAIN MEDICATION GTTS. UPON ASSESSMENT AT 1940 THE REVA IV WAS EDEMATOUS AND THE SKIN WAS PALLOR AROUND THE EDEMA. THE IV HAD GONE BAD. THE IV GTT WERE THEN SWITCHED TO THE LOTUS AND RN TALKED TO DOOR FURRING INSTALLER ABOUT GETTING CENTRAL LINE PLACED. STEAM HEATING INSTALLER AND RN ATTEMPTED TO PLACE A PERIPHERAL WITH NO SUCCESS. SECOND IV WENT BAD: BECAME EDEMATOUS, PALLOR ARUOND THE SITE. FENTANYL AND VERSED WERE TURNED OFF FOR ABOUT AN HOUR. IM VERSED 10 MG PUSHED RIGHT BEFORE LINE PLACEMENT. ORDERED BY ER , ER MD CAME UP AROUND [address] CENTRAL LINE.
[2021-05-27 04:51] LABS: BASOPHIL 0.3 % (0-2); EOSINOPHIL 0.1 % (0-5); HCT 22.9 % (37.0-47.0); HGB 7.2 g/dl (12.5-16.0); LYMPHOCYTE 3.4 % (15-48); MCH 31.4 pg (25.0-31.0); MCHC 31.4 g/dL (32.0-36.0); MONOCYTE 3.2 % (0-12); MPV 11.7 fL (6.0-9.5); NRBC 7.9; PLT 181 K/uL (150-400); RBC 2.29 M/uL (4.20-5.40); RDW 19.3 % (11.5-14.0); WBC 19.8 K/uL (4.0-10.5)
[2021-05-27 04:53] LABS: NEUTROPHIL 87.5 % (41-80)
[2021-05-27 05:09] LABS: BUN/CREAT RATIO (CALC) 74.2 RATIO; CREATININE 0.66 mg/dL (0.51-0.95)
--- NOTE | 2021-05-27 19:01 | NUR ---
MD FISHMAN PLACED CENTRAL LINE IN RIGHT EXTERNAL JUGULAR. PT TOLERATED WELL. ALL VITALS WERE STABLE. CHEST XRAY ORDERED
[2021-05-28 10:39] LABS: BASOPHIL 0.3 % (0-2); EOSINOPHIL 0 % (0-5); HCT 24.1 % (37.0-47.0); HGB 7.6 g/dl (12.5-16.0); LYMPHOCYTE 5.7 % (15-48); MCH 32.3 pg (25.0-31.0); MCHC 31.5 g/dL (32.0-36.0); MCV 102.6 fL (78.0-100.0); MONOCYTE 2.8 % (0-12); MPV 11.9 fL (6.0-9.5); NEUTROPHIL 85.2 % (41-80); NRBC 5.5; PLT 185 K/uL (150-400); RBC 2.35 M/uL (4.20-5.40); RETICULOCYTE COUNT 9.4 % (1.0-2.0); WBC 18.2 K/uL (4.0-10.5)
[2021-05-28 11:08] LABS: IRON % SATURATION 28.6 %SAT (20-50)
[2021-05-28 11:35] LABS: BUN/CREAT RATIO (CALC) 83.3 RATIO; C-REACTIVE PROTEIN 0.3 mg/dL (<=0.90); CREATININE 0.54 mg/dL (0.51-0.95); MAGNESIUM 2.5 mg/dL (1.8-2.4); PHOSPHORUS 2.9 mg/dL (2.6-4.7)
[2021-05-29 05:26] LABS: BASOPHIL 0.5 % (0-2); EOSINOPHIL 0 % (0-5); HCT 36.4 % (37.0-47.0); LYMPHOCYTE 4.2 % (15-48); MCH 30.3 pg (25.0-31.0); MCHC 32.7 g/dL (32.0-36.0); MONOCYTE 3.4 % (0-12); MPV 12.2 fL (6.0-9.5); NEUTROPHIL 87.1 % (41-80); NRBC 4.5; PLT 167 K/uL (150-400); RBC 3.93 M/uL (4.20-5.40); RDW 21.9 % (11.5-14.0)
[2021-05-29 05:28] LABS: HGB 11.9 g/dl (12.5-16.0); MCV 92.6 fL (78.0-100.0); WBC 20.6 K/uL (4.0-10.5)
[2021-05-29 05:38] LABS: INR 1.13 (0.9-1.2); PROTHROMBIN TIME 13.9 SECONDS (11.8-13.4)
[2021-05-29 05:39] LABS: PTT 28.5 SECONDS (24.4-34.7)
[2021-05-29 05:55] LABS: ALBUMIN 2.5 g/dL (3.4-5.0); BILIRUBIN - TOTAL 1.6 mg/dL (0.2-1.0); BUN/CREAT RATIO (CALC) 76.7 RATIO; CREATININE 0.6 mg/dL (0.51-0.95); GLOBULIN (CALCULATION) 3.2 g/dL; MAGNESIUM 2.1 mg/dL (1.8-2.4); POTASSIUM 3.9 mmol/L (3.5-5.1); TOTAL PROTEIN 5.7 g/dL (6.4-8.2)
--- NOTE | 2021-05-29 15:23 | NUR ---
PT HAD A BOWEL MOVEMENT WHILE IN ROOM DAVID MORELAND AND EMILY ARITA WENT TO TURN PATIENT TO CLEAN AND REPOSITION AT 1200 VERSED WAS INCREASED FROM 4MG-6MG FENTANYL WAS INCREASED FROM 250MCG TO 275MCG DURRING TURN PT WAS EXTREMELY AGGRIVATED AND PULLING AT ET TUBE AND GRABBING AT GOWN O2 SAT DECREASED TO 86%-88% FIO2 WAS 100% DURRING ROLLING AND REPOSITIONING. AT 1230 PT WAS STILL INCREASEINGLY AGGRIVATED AND VERSED WAS INCREASED TO 8 BLOOD PREUUSRE WAS 160'S /100'S HEART RATE 120'S-130'S PT WAS GIVEN 2.5 LOPRESSOR IVP 1345 PT BP 90'S/50'S PT IS SEDATED AND APPEARS RELAXED. O2 IS STABLE AT THIS TIME VERSED DECREASED TO 5MG
[2021-05-30 04:14] LABS: BASOPHIL 0.2 % (0-2); EOSINOPHIL 0.2 % (0-5); HCT 28.6 % (37.0-47.0); LYMPHOCYTE 4.4 % (15-48); MCH 29.9 pg (25.0-31.0); MCHC 31.5 g/dL (32.0-36.0); MONOCYTE 3.2 % (0-12); MPV 11.3 fL (6.0-9.5); NEUTROPHIL 86.5 % (41-80); PLT 119 K/uL (150-400); RBC 3.01 M/uL (4.20-5.40); RDW 21.9 % (11.5-14.0); WBC 11.1 K/uL (4.0-10.5)
[2021-05-30 04:17] LABS: NRBC 3.2
[2021-05-30 04:32] LABS: ALBUMIN 1.9 g/dL (3.4-5.0); BILIRUBIN - TOTAL 0.9 mg/dL (0.2-1.0); BUN/CREAT RATIO (CALC) 81.6 RATIO; CREATININE 0.49 mg/dL (0.51-0.95); GLOBULIN (CALCULATION) 2.1 g/dL; PHOSPHORUS 3.3 mg/dL (2.6-4.7); POTASSIUM 4.4 mmol/L (3.5-5.1)
[2021-05-31 05:30] LABS: BASOPHIL 0.1 % (0-2); EOSINOPHIL 0.1 % (0-5); HCT 26.2 % (37.0-47.0); HGB 8.2 g/dl (12.5-16.0); LYMPHOCYTE 3.9 % (15-48); MCH 30.4 pg (25.0-31.0); MCHC 31.3 g/dL (32.0-36.0); MONOCYTE 2.6 % (0-12); NEUTROPHIL 87.8 % (41-80); PLT 111 K/uL (150-400); RDW 21.9 % (11.5-14.0); WBC 8.5 K/uL (4.0-10.5)
[2021-05-31 06:18] LABS: BAND 5 % (0-10); LYMPHOCYTE(M) 3 % (15-48); MONOCYTE(M) 5 % (0-12); NEUTROPHILS(M) 86 % (41-80); TOTAL CELL COUNT 100; VARIANT LYMPHOCYTE 1
[2021-05-31 06:19] LABS: PLATELET ESTIMATE DECREASED; PLATELET MORPHOLOGY NORMAL
[2021-05-31 06:54] LABS: CREATININE 0.48 mg/dL (0.51-0.95)
[2021-05-31 06:55] LABS: ALBUMIN 1.8 g/dL (3.4-5.0); BILIRUBIN - TOTAL 0.9 mg/dL (0.2-1.0); GLOBULIN (CALCULATION) 2.4 g/dL; TOTAL PROTEIN 4.2 g/dL (6.4-8.2)
[2021-05-31 07:10] LABS: MAGNESIUM 1.9 mg/dL (1.8-2.4); PHOSPHORUS 3.5 mg/dL (2.6-4.7)
[2021-06-01 03:40] LABS: BASOPHIL 0.1 % (0-2); EOSINOPHIL 0 % (0-5); HCT 26.3 % (37.0-47.0); HGB 8.2 g/dl (12.5-16.0); LYMPHOCYTE 3.5 % (15-48); MCH 30.4 pg (25.0-31.0); MCHC 31.2 g/dL (32.0-36.0); MCV 97.4 fL (78.0-100.0); MONOCYTE 2.3 % (0-12); MPV 11.5 fL (6.0-9.5); NEUTROPHIL 89.4 % (41-80); NRBC 0.8; PLT 113 K/uL (150-400); RDW 22.3 % (11.5-14.0); WBC 8.3 K/uL (4.0-10.5)
[2021-06-01 04:17] LABS: CREATININE 0.42 mg/dL (0.51-0.95); POTASSIUM 3.8 mmol/L (3.5-5.1)
--- NOTE | 2021-06-01 23:51 | NUR ---
6827 DR ECHAVARRIA NOTIFIED OF PATIENT SBP IN 70S AND 80S. ORDERS NOTED FOR 1 LITER SALINE BOLUS
[2021-06-02 04:37] LABS: BASOPHIL 0.2 % (0-2); EOSINOPHIL 0.3 % (0-5); HCT 31.3 % (37.0-47.0); HGB 9.9 g/dl (12.5-16.0); LYMPHOCYTE 3.3 % (15-48); MCH 30.9 pg (25.0-31.0); MCHC 31.6 g/dL (32.0-36.0); MCV 97.8 fL (78.0-100.0); MONOCYTE 2.9 % (0-12); MPV 11.5 fL (6.0-9.5); NEUTROPHIL 87.3 % (41-80); PLT 150 K/uL (150-400); RDW 23.8 % (11.5-14.0); WBC 12.9 K/uL (4.0-10.5)
[2021-06-02 04:54] LABS: BUN/CREAT RATIO (CALC) 63.4 RATIO; CREATININE 0.41 mg/dL (0.51-0.95); MAGNESIUM 1.9 mg/dL (1.8-2.4); POTASSIUM 3.9 mmol/L (3.5-5.1)
[2021-06-03 06:09] LABS: BASOPHIL 0.4 % (0-2); EOSINOPHIL 0.1 % (0-5); HCT 33.2 % (37.0-47.0); HGB 10.6 g/dl (12.5-16.0); LYMPHOCYTE 4.5 % (15-48); MCH 31.2 pg (25.0-31.0); MCHC 31.9 g/dL (32.0-36.0); MCV 97.6 fL (78.0-100.0); MONOCYTE 1.8 % (0-12); NEUTROPHIL 87.8 % (41-80); PLT 173 K/uL (150-400); RDW 24.9 % (11.5-14.0); WBC 14.1 K/uL (4.0-10.5)
[2021-06-03 06:40] LABS: ALBUMIN 2.2 g/dL (3.4-5.0); BILIRUBIN - TOTAL 0.8 mg/dL (0.2-1.0); BUN/CREAT RATIO (CALC) 78.6 RATIO; CREATININE 0.42 mg/dL (0.51-0.95); GLOBULIN (CALCULATION) 3.5 g/dL; POTASSIUM 3.9 mmol/L (3.5-5.1); TOTAL PROTEIN 5.7 g/dL (6.4-8.2)
--- NOTE | 2021-06-03 12:31 | NUR ---
1030 CPAP TRIAL STARTED, PT AWAKE, ANSWERS YES AND NO QUESTIONS, SEDATION TURNED DOWN FENTANYL IS AT 300MCG, VERSED IS OFF AND DIPRAVAN AT MCG 1120 INCREASED SEDATION THAN SWITCHED BACK TO PRESSURE SUPPORT PT BP 190/80,HR 128 AFTER IV LOPRESSOR RR 47, PT DIAPHORTIC AND FLUSHED. PT ANXIOUS AND UNABLE TO CALM
[2021-06-04 04:54] LABS: BASOPHIL 0.1 % (0-2); EOSINOPHIL 0 % (0-5); HCT 27.6 % (37.0-47.0); HGB 8.7 g/dl (12.5-16.0); LYMPHOCYTE 3.2 % (15-48); MCH 31.2 pg (25.0-31.0); MCHC 31.5 g/dL (32.0-36.0); MCV 98.9 fL (78.0-100.0); MONOCYTE 2.1 % (0-12); NEUTROPHIL 90.2 % (41-80); NRBC 1.2; PLT 132 K/uL (150-400); RBC 2.79 M/uL (4.20-5.40); RDW 24.3 % (11.5-14.0); WBC 9.8 K/uL (4.0-10.5)
[2021-06-04 05:11] LABS: ALBUMIN 1.8 g/dL (3.4-5.0); BILIRUBIN - TOTAL 0.6 mg/dL (0.2-1.0); BUN/CREAT RATIO (CALC) 79.5 RATIO; CREATININE 0.39 mg/dL (0.51-0.95); MAGNESIUM 1.9 mg/dL (1.8-2.4); PHOSPHORUS 4.1 mg/dL (2.6-4.7); POTASSIUM 3.6 mmol/L (3.5-5.1); TOTAL PROTEIN 4.8 g/dL (6.4-8.2)
--- NOTE | 2021-06-04 16:10 | NUR ---
06/04/21 Mr. Del Toro has agreed for a referral to be made to [facility]. A referral was faxed to [facility]. The referral will be reviewed to determine if they will accept patient and placed on a waiting list.
[2021-06-05 04:03] LABS: BASOPHIL 0.3 % (0-2); EOSINOPHIL 0.1 % (0-5); HCT 32.6 % (37.0-47.0); HGB 9.9 g/dl (12.5-16.0); LYMPHOCYTE 2.6 % (15-48); MCH 31.2 pg (25.0-31.0); MCHC 30.4 g/dL (32.0-36.0); MCV 102.8 fL (78.0-100.0); MONOCYTE 2.2 % (0-12); MPV 11.1 fL (6.0-9.5); NEUTROPHIL 90.1 % (41-80); NRBC 1.5; PLT 177 K/uL (150-400); RBC 3.17 M/uL (4.20-5.40); RDW 24.5 % (11.5-14.0)
[2021-06-05 04:23] LABS: ALBUMIN 2.2 g/dL (3.4-5.0); BILIRUBIN - TOTAL 0.6 mg/dL (0.2-1.0); BUN/CREAT RATIO (CALC) 71.4 RATIO; CREATININE 0.42 mg/dL (0.51-0.95); GLOBULIN (CALCULATION) 3.6 g/dL; MAGNESIUM 2.1 mg/dL (1.8-2.4); POTASSIUM 3.6 mmol/L (3.5-5.1); TOTAL PROTEIN 5.8 g/dL (6.4-8.2)
--- NOTE | 2021-06-05 15:29 | NUR ---
06/05/21 Mr. Del Toro inquired if a referral could be made to [facility] in [place]. He was informed that this information would be relayed to Dr. Majano. Mr. Del Toro continues to be in aggreemenr with transfer to [place] if patient is accepted. - The above mentioned was relayed to Dr. Majano. - Andre at [facility] reports the referral to be in review to include verifying insurance coverage.
[2021-06-06 06:17] LABS: ALBUMIN 1.7 g/dL (3.4-5.0); BILIRUBIN - TOTAL 0.6 mg/dL (0.2-1.0); CREATININE 0.45 mg/dL (0.51-0.95); GLOBULIN (CALCULATION) 2.8 g/dL; PHOSPHORUS 3.5 mg/dL (2.6-4.7); POTASSIUM 3.4 mmol/L (3.5-5.1); TOTAL PROTEIN 4.5 g/dL (6.4-8.2)
[2021-06-06 06:20] LABS: BASOPHIL 0.3 % (0-2); EOSINOPHIL 0 % (0-5); HCT 26.7 % (37.0-47.0); HGB 8.4 g/dl (12.5-16.0); LYMPHOCYTE 4.2 % (15-48); MCH 31.3 pg (25.0-31.0); MCHC 31.5 g/dL (32.0-36.0); MCV 99.6 fL (78.0-100.0); MONOCYTE 1.1 % (0-12); MPV 11.6 fL (6.0-9.5); NEUTROPHIL 89.7 % (41-80); NRBC 1.5; PLT 149 K/uL (150-400); RBC 2.68 M/uL (4.20-5.40); WBC 6.2 K/uL (4.0-10.5)
[2021-06-06 14:55] LABS: BUN/CREAT RATIO (CALC) 61.9 RATIO; CREATININE 0.42 mg/dL (0.51-0.95); POTASSIUM 4.2 mmol/L (3.5-5.1)
--- NOTE | 2021-06-06 16:33 | NUR ---
PT BEING TRANSFERRED TO [facility] BY [facility], VENTILATOR, RIGHT AND LEFT CHEST TUBES, VERSED GTT, FENTANYL GTT, VTAL SIGNS 151/74, HR 94,R 26, 97% HUSABND NOTIFIED OF PATIENT BEING TRANSFERRED AND CAME FOR A VISIT.
--- NOTE | 2021-06-06 16:52 | NUR ---
06/06/21 Andre black Howe was informed that patient is being transferred to [facility]
== END 2021-06-06 17:30 | disposition other institution (70) | DRG 870 ==
LOC: FER 16:14 → FTCU 21:31 → FICU 05-16 22:56
PROVIDERS: Emergency Medicine; Family Medicine; Internal Medicine; Nurse Practitioner; ADMIT Internal Medicine
PROC: 8E0ZXY6 Isolation (ICD-10-PCS; principal; 2021-05-01)
PROC: XW033G6 Introduction of REGN-COV2 Monoclonal Antibody into Peripheral Vein, Percutaneous Approach, New Technology Group 6 (ICD-10-PCS; 2021-05-01)
PROC: XW033E5 Introduction of Remdesivir Anti-infective into Peripheral Vein, Percutaneous Approach, New Technology Group 5 (ICD-10-PCS; 2021-05-01)
PROC: XW0DXM6 Introduction of Baricitinib into Mouth and Pharynx, External Approach, New Technology Group 6 (ICD-10-PCS; 2021-05-01)
PROC: 5A09557 Assistance with Respiratory Ventilation, Greater than 96 Consecutive Hours, Continuous Positive Airway Pressure (ICD-10-PCS; 2021-05-01)
PROC: 06HY33Z Insertion of Infusion Device into Lower Vein, Percutaneous Approach (ICD-10-PCS; 2021-05-13)
PROC: B54BZZA Ultrasonography of Right Lower Extremity Veins, Guidance (ICD-10-PCS; 2021-05-13)
PROC: 5A1955Z Respiratory Ventilation, Greater than 96 Consecutive Hours (ICD-10-PCS; 2021-05-16)
PROC: 3E043XZ Introduction of Vasopressor into Central Vein, Percutaneous Approach (ICD-10-PCS; 2021-05-16)
PROC: 0BH18EZ Insertion of Endotracheal Airway into Trachea, Via Natural or Artificial Opening Endoscopic (ICD-10-PCS; 2021-05-16)
PROC: 0W9930Z Drainage of Right Pleural Cavity with Drainage Device, Percutaneous Approach (ICD-10-PCS; 2021-05-19)
PROC: 06HY33Z Insertion of Infusion Device into Lower Vein, Percutaneous Approach (ICD-10-PCS; 2021-05-25)
PROC: 05HM33Z Insertion of Infusion Device into Right Internal Jugular Vein, Percutaneous Approach (ICD-10-PCS; 2021-05-27)
PROC: B543ZZA Ultrasonography of Right Jugular Veins, Guidance (ICD-10-PCS; 2021-05-27)
PROC: 30243N1 Transfusion of Nonautologous Red Blood Cells into Central Vein, Percutaneous Approach (ICD-10-PCS; 2021-05-28)
PROC: 0W9B30Z Drainage of Left Pleural Cavity with Drainage Device, Percutaneous Approach (ICD-10-PCS; 2021-05-30)
DX: A41.89 Other specified sepsis (principal); U07.1 COVID-19; J12.82 Pneumonia due to coronavirus disease 2019; J96.01 Acute respiratory failure with hypoxia; R65.21 Severe sepsis with septic shock; J15.9 Unspecified bacterial pneumonia; I21.A1 Myocardial infarction type 2; E87.2 Acidosis; I51.81 Takotsubo syndrome; J95.859 Other complication of respirator [ventilator]; J95.811 Postprocedural pneumothorax; J94.8 Other specified pleural conditions; K92.0 Hematemesis; B37.41 Candidal cystitis and urethritis; E87.1 Hypo-osmolality and hyponatremia; I50.30 Unspecified diastolic (congestive) heart failure; J98.2 Interstitial emphysema; K59.03 Drug induced constipation; D64.9 Anemia, unspecified; R73.9 Hyperglycemia, unspecified; E87.6 Hypokalemia; E87.70 Fluid overload, unspecified; T40.415A Adverse effect of fentanyl or fentanyl analogs, initial encounter; L89.896 Pressure-induced deep tissue damage of other site; I10 Essential (primary) hypertension; E78.5 Hyperlipidemia, unspecified; J44.9 Chronic obstructive pulmonary disease, unspecified; Z23 Encounter for immunization; Z88.5 Allergy status to narcotic agent; Z98.890 Other specified postprocedural states; Z82.49 Family history of ischemic heart disease and other diseases of the circulatory system; Z82.5 Family history of asthma and other chronic lower respiratory diseases; Z80.9 Family history of malignant neoplasm, unspecified; Z86.718 Personal history of other venous thrombosis and embolism; Z78.1 Physical restraint status
CPT/HCPCS: 31500; 36415; 36430; 36600; 70450; 71045; 71275; 74018; 80048; 80053; 80202; 81001; 81003; 82607; 82728; 82803; 82962; 83540; 83550; 83605; 83615; 83735; 83880; 84100; 84134; 84145; 84478; 84484; 85014; 85018; 85025; 85379; 85610; 85730; 86140; 86850; 86900; 86901; 86922; 87040; 87088; 93005; 93970; 94002; 94010; 94640; 94660; C1751; C9113; C9399; J0171; J0456; J0610; J0637; J0696; J1100; J1170; J1650; J1815; J1940; J2060; J2185; J2250; J2370; J2704; J3010; J3360; J3370; J3475; J3480; J7030; J7040; J7050; J7060; J7070; J8540; M0243; P9016; Q0244; Q9967; U0002